=== PATIENT | female | born 1960 | race Caucasian/White ===

== ENCOUNTER → 2017-10-17 | Outpatient (CLI) | payer BC ==
[~2017-10-17] MED LIST: 00186-0372-20 IH; ALBUTEROL0.83 MG/ML; AMBIEN 10MG10 MG PO; CLEOCIN HC150 MG/CAP PO; COMBIVENT INH14.7 GM IH; DOXYCYCLINE 10100 MG PO; LORTAB 5/500 501 TAB PO; MOBIC15 MG PO; NICODERM C14 MG/PATC TD; NICODERM C14 MG/PATC TOP; NORCO 325 MG-51 TAB PO; PREDNISONE 5MG5 MG PO; PREDNISONE20 MG; PRINIVIL10 MG PO; PROAIR HFA0.09 MG/AC IH; RT ADVAIR HFA 1112 G IH; RT SPIRIVA18 MCG IH; ZESTRIL 10MG10 MG PO
== END ==
LOC: COL.RAD 12:23
DX: R10.12 Left upper quadrant pain (principal)

== ENCOUNTER → 2018-08-28 | Outpatient (CLI) | payer BC | LOC: MC.RAD 11:14 | DX: Z12.31 Encounter for screening mammogram for malignant neoplasm of breast (principal) ==

== ENCOUNTER → 2023-09-08 | Outpatient (CLI) | payer OTHER | LOC: MC.RAD 09:04 | DX: Z12.31 Encounter for screening mammogram for malignant neoplasm of breast (principal) ==